=== PATIENT | female | born 1955 | race Caucasian/White ===

== ENCOUNTER 2016-08-03 07:14 | Day surgery (SDC) | payer OTHER ==
[~2016-08-03] VITALS: Ht 160 cm; Wt 79.5 kg
[2016-08-03] MEDS ORDERED: LEVO88TA3 PO (08:09)
[2016-08-03 08:13] VITALS: Ht 160 cm; Wt 79.5 kg
[2016-08-03 08:37] VITALS: BP 133/69; PULSE 73; RESP 12
[2016-08-03] MEDS ORDERED: MIDAZOLAM 1 MG/ML 2 ML INJ ONE ×2 (08:59)
[2016-08-03] MEDS ORDERED: FENTAnyl 50 MCG/ML VIAL ONE (08:59)
[2016-08-03 09:25] VITALS: BP 117/65; PULSE 61; RESP 20
--- NOTE | 2016-08-03 11:32 | GILP ---
DATE OF PROCEDURE: 08/03/2016 NAME OF PROCEDURE: Colonoscopy. SURGEON: Deny Mccray MD PREOPERATIVE DIAGNOSIS: Positive occult blood in stool. POSTOPERATIVE DIAGNOSES: 1. Colonoscopy all the way to the cecum. 2. Internal hemorrhoids. 3. No colon neoplasm was identified. INDICATION FOR THE PROCEDURE: Ms. Veronica French is a 61-year-old female patient who was note d to have positive occult blood in stool. The patient was scheduled for colonoscopy. The procedure and possible complications are well explained to the patient, she understood and conse nted to the procedure. DESCRIPTION OF PROCEDURE: Under the influence of fentanyl and Versed, the colonoscope was carefully introduced in the rectum and under direct vision, it was advanced all the way to the cecum. FINDINGS: The patient had internal hemorrhoids. No colon neoplasm was identified. She tolerated the procedure very well and there was no complication from the procedure. At the end of the procedure, she was awake with stable vital signs and she was discharged home to the care of h er family. IMPRESSION: 1. Colonoscopy all the way to the cecum. 2. Internal hemorrhoids. 3. No colon neoplasm was identified. PLAN: Next screening colonoscopy in 10 years. Dictated By: DENY NIELSEN/YULIYA Conf#: [id number] DID#: [id number]
== END 2016-08-03 12:03 | disposition home or self-care (01) ==
LOC: GIL 07:14
PROVIDERS: ATTEND Internal Medicine Gastroenterology
DX: K92.1 Melena (principal); K64.8 Other hemorrhoids
CPT/HCPCS: 45378; J2250; J3010; Z7610